=== PATIENT | male | born 1945 | race Caucasian/White ===

== ENCOUNTER 2016-09-01 05:46 | Day surgery (SDC) | payer OTHER ==
--- NOTE | 2016-08-31 16:45 | HP ---
EYAD MOHAMUD [id number] HISTORY OF PRESENT ILLNESS: Eyad is a 70-year-old who presented to my clinic for the last couple of years with complaints of painful heels bilaterally. He underwent plantar fasciotomies several years ago. He has had complications and problems with these ever since. He had a plantar fasciotomy done by myself on the right side back on 11/26/2015. He has progressed well with this. We had done temporary conservative measures on the left side. He would like to go ahead and have this left side repeated as well. His last MRI report that we got did show a significant thickening again of the plantar aponeurosis in and around the insertion on the heel, consistent with the plantar fasciitis. They elected to go ahead and schedule surgery. PAST MEDICAL HISTORY: Significant for chief complaint. ALLERGIES: No known drug allergies. CURRENT MEDICATIONS: He will supply us with a med list. PAST SURGICAL HISTORY: 1. He has had the bilateral plantar fasciotomies done in the past. 2. A repeat plantar fasciotomy of the right heel last year. SOCIAL HISTORY: He denies any tobacco or alcohol use. FAMILY HISTORY: Noncontributory. PHYSICAL EXAMINATION: VITAL SIGNS: Blood pressure 116/64. Pulse 94 and regular. HEENT: Head is normocephalic. No scars or masses noted. External exam of the ears and eyes is negative. Throat shows no masses or inflammation. NECK: Shows no lymphadenopathy. LUNGS: Clear to auscultation in all gaines. HEART: Regular rate and rhythm. No murmurs or gallops noted. ABDOMEN: Soft, nontender and nondistended. LOWER EXTREMITIES: His lower extremities and pedal pulses are intact. Filling time of two to three seconds. Color of skin is pink.. NEUROLOGIC: Gross sensation intact. DERMAGOLOGIC: Temperature, texture and turgor are within normal limits. MUSCULOSKELETAL: He has an old vertical scar running down the medial side of the left heel and ankle. He also has tenderness directly under the plantar fascial ligament in the area of the medial tubercle of the calcaneus. PLAN: We are scheduling him to do a plantar fasciotomy with excision of bone spur on his left side. All risks and complications inherent to the procedure are gone over with the patient and he understands these. There are no contraindications in his medical history. He is scheduled for this procedure at [facility] on 09/01/2016, and will be followed at that time. E/trr
[2016-09-01] MEDS ORDERED: LACTATED RINGERS 1,000 ML ONE (05:51)
[2016-09-01] MEDS ORDERED: IV START KIT ONE (05:51)
[2016-09-01] MEDS ORDERED: CEFAZOLIN SODIUM 2 GRAM PREMIX 100 ML IV PRN (06:00)
[2016-09-01] MEDS ORDERED: CEFAZOLIN SODIUM 2 GRAM PREMIX 100 ML IV ONE (06:10)
[2016-09-01] MEDS ORDERED: BUPIVACAINE 0.5% (PRES FREE) 30 ML VIAL ONE (06:55)
[2016-09-01] MEDS ORDERED: LIDOCAINE 1% (PRES FREE) 30 ML VIAL ONE (06:55)
[2016-09-01] MEDS ORDERED: MIDAZOLAM HCL 5 MG/5 ML VIAL ONE (07:07)
[2016-09-01] MEDS ORDERED: PROPOFOL 40 ML IV ONE (07:08)
[2016-09-01] MEDS ORDERED: KETAMINE HCL UD SYRINGE 100 MG/2 ML IV ONE (07:08)
[2016-09-01 07:13] LABS: ABSOLUTE NEUTROPHIL COUNT 4.4 K/mm3 (1.8-7.7); BASO # 0.1 K/mm3 (0.0-0.2); BASO % 1.4 % (0.2-1.0); EOS # 0.4 (0.0-0.5); EOS % 4.8 % (0.9-2.9); HEMATOCRIT 43.5 % (32.0-52.0); HEMOGLOBIN 14.4 gm/l (14.0-18.0); IMM NEUT% 0.3 % (0-1); LYMPH # 1.7 (1.0-4.8); LYMPH % 23.2 % (15-45); MEAN CELL VOLUME 92.9 fl (80.0-94.0); MEAN CORPUSCULAR HEMOGLOBIN 30.8 pg (27.0-31.0); MEAN CORPUSCULAR HGB CONC 33.1 g/dl (33.0-37.0); MEAN PLATELET VOLUME 10.6 fl (7.4-10.4); MONO # 0.8 (0.0-0.8); MONO % 10.5 % (4-12); NEUT % 59.8 % (43-75); PLATELET COUNT 179 K/mm3 (130-400); RED CELL DISTRIBUTION WIDTH 12.8 % (11.5-14.5)
[2016-09-01] MEDS ORDERED: ON-Q PUMP/ROPIVACAINE 0.2% 450 ML ONE (08:34)
[2016-09-01] MEDS ORDERED: ON-Q PUMP/ROPIVACAINE 0.2% 400 ML in PREMIX BAG 1 EACH NB SCH (09:07)
[2016-09-01] MEDS ORDERED: OXYCODONE HCL 5 MG TABLET PO PRN (09:07)
[2016-09-01] MEDS ORDERED: OXYCODONE HCL 5 MG TABLET ONE (09:48)
--- NOTE | 2016-09-04 11:10 | OP ---
Eyad Donahue DATE OF SURGERY: 09/01/2016 SURGEON: Marlon Santos M.D. PREOPERATIVE DIAGNOSES: 1. Painful plantar fasciitis. 2. Heel spur left foot. POSTOPERATIVE DIAGNOSES: 1. Painful plantar fasciitis. 2. Heel spur left foot. PROCEDURE: Plantar fasciotomy, excision of heel spur left heel. ANESTHESIA: MAC sedation with local anesthetic block using 22 mL of 1% lidocaine and 0.5% Marcaine in a 1:1 mix into the left heel. HEMOSTASIS: Ankle tourniquet inflated to 250 mmHg for a total of 48 minutes left foot. ESTIMATED BLOOD LOSS: Less than 15 mL. MATERIALS: 3-0 Vicryl, 3-0 Prolene, one On-Q pain pump. PROCEDURE PERFORMED: The patient was brought in the operating room and laid on the operating room table in supine position. After he was adequately sedated we anesthetized the left foot with the above stated anesthetic block. Prepped and draped the foot in the standard sterile fashion. Using an Esmarch we exsanguinated blood from the left foot and inflated the ankle tourniquet at this time. Attention was drawn to the medial side of the left heel where a longitudinal incision was made over the medial tubercle running approximately 3 cm distal to this and 2 cm proximal to this. This incision was deepened to the epidermis and dermis. All superficial vessels were Bovie cautery using Metzenbaum scissors. We deepened through the subcutaneous tissue down to the plantar fascia ligament. Using a Weitlaner we opened up the wound to expose the entire medial plantar fascia at the heel level. Using sharp dissection we undermined the fat off plantar fascia and made a cut through the plantar fascia at the level of the heel bone running half way a across the plantar fascia. A second cut was made about 1 cm distal to this. These two cuts were then joined half way across the plantar fascia. We then went ahead and removed a good centimeter of the fascia completely off the foot, checked the tension on the plantar fascia, noted to be no tension remaining at this time. We then went ahead and using a bone risa and rondustin ronguered off the roughened bone spur off the plantar aspect of the heel. We did this all the way across until we could no longer feel any prominent bone. At this point, we took bone risa and burred the edges of the bone smooth and round, irrigated the wound with saline. I checked to find no other abnormalities. We went ahead and closed deep structures back together with 3-0 Vicryl in a simple interrupted fashion. Closed the superficial structures in the same manner. Closed the skin with 3-0 Prolene in a horizontal mattress fashion. Wound was dressed with Xeroform and dry sterile dressing. The patient tolerated the procedure well and left operating room for recovery with vital signs stable in no apparent distress. Follow up in my office in 72 hours for postoperative check. JOB: [id number]
--- NOTE | 2016-09-05 10:09 | SURGPATH ---
[facility] [address] [place] [id number] Patient Name: CHOCO MOHAMUD MR#: [id number] : 1945 Gender: M Specimen #: [id number] Collected: 09/01/2016 Received: 09/04/2016 Reported: 09/05/2016 Submitting Phys: SABRINA ERWIN Copy To Phys: [facility] Clinical History / Pre-Operative Diagnosis: Plantar fasciitis Specimen Source / Surgical Procedure Performed: Left heel plantar fascia Interpretation: LEFT HEEL, PLANTAR FASCIA, BIOPSY: - CONSISTENT WITH PLANTAR FIBROMATOSIS Electronically Signed Out Onofre Souza M.D. Gross Description: The specimen is received in formalin labeled with the patient's name and "plantar fascia left heel". The specimen consists of a 2.0 x 2.0 x 1.0 cm aggregate of thick rubbery-firm barrow tissue fragments. Community Health Advisor submitted in one cassette. JOSEPHINE Hawkins Microscopic Description: A slide contains portions of a nodular lesion composed of mature fibroblasts and broad bands of collagen. Immature and malignant features are not seen. 1: [id number] M72.2
== END 2016-09-01 10:30 | disposition home or self-care (01) ==
LOC: SDC 05:46
PROVIDERS: ATTEND Podiatrist
PROC: 0J8R0ZZ Division of Left Foot Subcutaneous Tissue and Fascia, Open Approach (ICD-10-PCS; principal; 2016-09-01)
PROC: 0QBM0ZZ Excision of Left Tarsal, Open Approach (ICD-10-PCS; 2016-09-01)
DX: M72.2 Plantar fascial fibromatosis (principal); M77.32 Calcaneal spur, left foot
CPT/HCPCS: 28119; 85025; 93005; A9270; J2250; J2001; J7120; J2795 ×2; A4306; J0690